=== PATIENT | female | born 1935 | race African-American/Black ===

== ENCOUNTER 2024-08-29 11:37 | Emergency (ER) | payer MEDICARE ==
[~2024-08-29] VITALS: Ht 152.4 cm; Wt 70.0 kg
[2024-08-29 11:40] VITALS: O2SAT 98
[2024-08-29] MEDS ORDERED: ACETAMINOPHEN 325MG TABLET PO ONE (12:45)
[2024-08-29] MEDS: ACETAMINOPHEN 325MG TABLET PO NR (15:16)
[2024-08-29] MEDS ORDERED: IBUP-2029 MT (15:22)
[2024-08-30 08:36] LABS: INR 1.1; POTASSIUM 4.4 mEq/L (3.5-5.1)
[2024-08-30 08:37] LABS: CALCIUM 9.2 mg/dL (8.7-10.4)
[2024-08-30 08:42] LABS: BASOPHILS % 0.9 % (0.0-2.0); CREATININE 1.1 mg/dL (0.6-1.0); DIFFERENTIAL COMMENT 0; EOSINOPHILS % 1.8 % (0.0-5.0); HEMATOCRIT. 34.1 % (36.0-48.0); HEMOGLOBIN. 11.7 g/dL (12.0-16.0); LYMPHOCYTES % 20.1 % (20.0-50.0); MEAN CORPUSCULAR HGB CONC 34.4 g/dL (31.0-37.0); MONOCYTES % 6.5 % (2.0-8.0); NEUTROPHILS % 70.7 % (40.0-76.0); PLATELET 335 x1000/uL (130-400); RED BLOOD CELL COUNT 3.34 mill/uL (4.2-5.4); RED CELL DISTRIBUTION WIDTH 15.1 % (11.6-14.6); WHITE BLOOD COUNT 7.5 x1000/uL (4.5-11.0)
[2024-08-30 08:45] VITALS: BP 108/62; PULSE 91; RESP 18; TEMP 36.66960; O2SAT 98
== END 2024-08-30 08:47 | disposition home or self-care (01) ==
LOC: ER 11:37 → CANBEDREQ 08-30 08:41 → ER 08-30 08:47
DX: S42.201A Unspecified fracture of upper end of right humerus, initial encounter for closed fracture (principal); Z86.73 Personal history of transient ischemic attack (TIA), and cerebral infarction without residual deficits; W18.30XA Fall on same level, unspecified, initial encounter; Y93.89 Activity, other specified; Y92.89 Other specified places as the place of occurrence of the external cause; Y99.8 Other external cause status
CPT/HCPCS: 29125; 36415; 73030; 73070; 73100; 80048; 85025; 99284; A4565

== ENCOUNTER 2024-10-23 17:26 | Emergency (ER) | payer MEDICARE, OTHER ==
[~2024-10-23] VITALS: Ht 165.1 cm; Wt 63.0 kg
[~2024-10-23 17:26] MED LIST: IBUP-2029 MT
[2024-10-23 17:30] VITALS: O2SAT 99
[2024-10-23 18:00] VITALS: BP 141/83; PULSE 78; RESP 16; TEMP 36.8; O2SAT 98
[2024-10-23] MEDS ORDERED: IBUPROFEN 600MG TABLET PO ONE (20:00)
== END 2024-10-23 21:45 | disposition home or self-care (01) ==
LOC: ER 17:26
DX: S42.201A Unspecified fracture of upper end of right humerus, initial encounter for closed fracture (principal); Z86.73 Personal history of transient ischemic attack (TIA), and cerebral infarction without residual deficits; W19.XXXA Unspecified fall, initial encounter; Y93.89 Activity, other specified; Y92.89 Other specified places as the place of occurrence of the external cause; Y99.8 Other external cause status
CPT/HCPCS: 29105; 73060; 99283; A4565